=== PATIENT | male | born 1945 | race Two or more races ===

== ENCOUNTER 2024-08-07 08:29 | Outpatient (AMB) | payer MEDICARE, MEDICAID, SELFPAY ==
--- NOTE | 2024-08-07 08:36 | MHC.OFFVIS ---
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 The patient states that he did have surgery on his low back in [place] approximately 6 years ago. He got fairly good relief from that surgery initially. The patient states that he re-injured his back approximately 1 year ago while lifting a heavy object. Since that time he has had ?sciatica pain? radiating down his left leg as well as associated left leg weakness. He has failed the last 6 weeks of conservative treatment which included topical creams, a home exercise program, Tylenol and anti-inflammatory medicines. The patient states that his right knee pain is tolerable to him at this time. He wishes to hold off on left total knee replacement surgery for as long as possible. Electronic Warfare Officer Required: Yes Electronic Warfare Officer Language: Spacer Type Bar And Segment Name: Ryan [id number] Allergies No Known Allergies Allergy (Verified 08/07/24 08:46) Physical Exam Vital Signs: BMI result Body Mass Index 26.6 Const Other: Well-nourished well-developed very friendly male awake alert and oriented x3 in no acute distress Back/Spine/Pelvis Other: Low back examination shows left sided paraspinal muscle tenderness, pain with range of motion, positive straight leg raise test on the left at 70 degrees, 4/5 strength with testing of his left hip flexors and knee extensors when compared to 5/5 strength on his right side Extrem Other: Bilateral knee examination shows minimal effusions, palpable crepitus with range of motion, pain with range of motion, no instability Office Procedures Joint Injection/Aspiration Joint Injection/Aspiration Primary Site: left knee Prep: site was prepped using aseptic technique Injected: 40 mg of, DepoMedrol and 1% plain lidocaine Procedure: The patient tolerated the procedure well Coding 93801 - Large joint Procedure code (CPT) selection complete Results Reviewed Results Reviewed: X-rays of the patient's bilateral knee show joint space narrowing, subchondral sclerosis, no acute bony abnormalities Assessment & Plan Assessment & Plan (1) Left knee pain: Code(s): M25.562 - Pain in left knee Category: Medical (2) Right knee pain: Code(s): M25.561 - Pain in right knee Category: Medical (3) Low back pain radiating to left leg: Code(s): M54.50 - Low back pain, unspecified; M79.605 - Pain in left leg Category: Medical Plan Mr. Alonso presents with progressively worsening low back pain which radiates down his left leg most likely due to lumbar stenosis versus a disc herniation. The patient also has bilateral knee pains, left greater than right, due to degenerative joint disease. I will send the patient for an MRI of his lumbar spine for further evaluation. I will see him back once the MRI is completed to discuss the findings and treatment options. We also discuss the risks and benefits of a left knee cortisone injection. The patient wished to proceed. He tolerated the injection well. He will continue with his activity modifications. He will contact me prior to his follow-up appointment should his symptoms worsen in any way. Feel free to call me at any time should questions regarding his orthopedic management arise. Thank you very much for asking me to see this very friendly gentleman. I spent 20 minutes in reviewing the patient's records and imaging studies, seeing the patient and documenting in the medical record. Orders: Orders XR knee RT 3V Today M25.561 - Pain in right knee MR lumbar spine wo con Today M54.50 - Low back pain, unspecified, M79.605 - Pain in left leg XR knee LT 3V Today M25.562 - Pain in left knee AMB Joint Injection/Aspiration Today M25.562 - Pain in left knee Coding Level of Care Code New Pt Level 3 (32084) Complex EM visit Add On G2211 Diagnoses Left knee pain M25.562 Right knee pain M25.561 Low back pain radiating to left leg M54.50; M79.605 CPT Codes Coding - Large joint: - Large joint ([id number])
[2024-08-07 08:44] VITALS: BMI 26.6
== END 2024-08-07 09:30 | disposition home or self-care (01) ==
PROVIDERS: PCP Internal Medicine; Visit Provider Orthopaedic Surgery
DX: M25.562 Pain in left knee (principal); M25.561 Pain in right knee; M54.50 Low back pain, unspecified; M79.605 Pain in left leg
CPT/HCPCS: 20610; 99203

== ENCOUNTER 2024-08-07 12:55 | Outpatient (REF) | payer MEDICAID, SELFPAY ==
--- NOTE | ~2024-08-07 | XR_ITS ---
EXAMINATION: XR KNEE 3 VIEWS LEFT CLINICAL INFORMATION: M25.562 - Pain in left knee COMPARISON: None available at the time of this dictation. TECHNIQUE: Frontal lateral and patella sunrise view 3 views FINDINGS: BONES: No fracture or dislocation is present. JOINTS: Narrowing of joint spaces and developed osteophytes from the edges of articular surfaces suggest degenerative osteoarthritis. SOFT TISSUE: There are vascular calcification and small knee joint effusion. XR/XR knee LT 3V IMPRESSION: Advanced tricompartment degenerative osteoarthritis involving especially medial compartment in which there is complete loss of joint space. Advanced arthritis caused medial varus angulation of the tibia at the knee. Knee joint effusion. Vascular calcifications. Electronically signed by: Jerry Villarreal MD 10/10/2024 04:33 PM EST
== END 2024-08-07 12:56 | disposition home or self-care (01) ==
LOC: HO.HOSX 12:55
PROVIDERS: Visit Provider Orthopaedic Surgery
DX: M25.561 Pain in right knee (principal); M25.562 Pain in left knee; M54.50 Low back pain, unspecified; M79.605 Pain in left leg
CPT/HCPCS: 20610; 73562; 99202; J1010; J2003

== ENCOUNTER 2025-08-28 08:27 | Outpatient (REF) | payer OTHER, SELFPAY | END 2025-08-28 08:28 | disposition home or self-care (01) | LOC: HO.HOSX 08:27 | PROVIDERS: Visit Provider Orthopaedic Surgery | DX: Z13.89 Encounter for screening for other disorder (principal) ==